=== PATIENT | male | born 1960 | race Caucasian/White ===

== ENCOUNTER 2017-11-02 20:23 | Emergency (ER) | payer OTHER ==
[~2017-11-02] VITALS: Ht 165.1 cm; Wt 79.4 kg
[2017-11-02 20:49] VITALS: BP 181/100
--- NOTE | 2017-11-02 21:17 | NUR ---
PT LEFT WITHOUT BEING SEEN BY DR CLEMENTE. DR CLEMENTE NOTIFIED. PT LEFT WITH VSS.
--- NOTE | 2017-11-02 21:18 | NUR ---
PATIENT LEFT WITHOUT BEING SEEN
== END 2017-11-02 21:18 | disposition left against medical advice (07) ==
LOC: MED 20:23
DX: R10.9 Unspecified abdominal pain (principal); Z53.21 Procedure and treatment not carried out due to patient leaving prior to being seen by health care provider